=== PATIENT | female | born 1985 | race Caucasian/White ===

== ENCOUNTER 2017-04-02 10:50 | Observation (INO) | payer MEDICAID, OTHER ==
[~2017-04-02] VITALS: Ht 165.1 cm; Wt 89.8 kg
[2017-04-02 11:54] VITALS: BP 100/56
[2017-04-02] MEDS ORDERED: PREN-380 PO (12:00)
[2017-04-02] MEDS ORDERED: FERR-252 PO (12:00)
== END 2017-04-02 13:26 | disposition home or self-care (01) ==
LOC: MLD 10:50
PROVIDERS: ADMIT Obstetrics & Gynecology; ATTEND Obstetrics & Gynecology
DX: O36.8120 Decreased fetal movements, second trimester, not applicable or unspecified (principal); Z3A.26 26 weeks gestation of pregnancy
CPT/HCPCS: 76819; 81000; G0378; Q0092

== ENCOUNTER 2017-05-08 10:05 | Observation (INO) | payer OTHER ==
[~2017-05-08] VITALS: Ht 165.1 cm; Wt 90.7 kg
[2017-05-08] MEDS: LACTATED RINGERS 1,000 ML IV SCH ×2 (00:58→16:27)
[~2017-05-08 10:05] MED LIST: FERR-252 PO; PREN-380 PO
[2017-05-08] MEDS ORDERED: DEXT 5% / LACT RING 1,000 ML IV SCH (10:50)
[2017-05-08] MEDS ORDERED: ONDANSETRON 4 MG/2 ML VIAL IVP PRN (10:55)
[2017-05-08] MEDS: guaiFENesin 20 MG/ML UDC PO PRN ×2 (11:46→17:52)
[2017-05-08 12:18] VITALS: BP 92/53
[2017-05-08] MEDS ORDERED: ALBUTEROL HFA MDI 90 MCG/ACTUATION 8 GM INH PRN (13:05)
[2017-05-08 13:22] LABS: BASOPHILS % (AUTO) 0.1 % (0.0-2.0); EOSINOPHILS % (AUTO) 0.2 % (0.0-4.0); HEMATOCRIT 34.4 % (36-48); HEMOGLOBIN 11.9 g/dL (12.0-16.0); LYMPHOCYTES # (AUTO) 0.4 K/uL (2.5-16.5); MEAN CORPUSCULAR HEMOGLOBIN 31 pg (27-31); MEAN CORPUSCULAR HGB CONC 35 g/dL (33-37); MEAN CORPUSCULAR VOLUME 90 fL (80-94); MONOCYTES # (AUTO) 0.8 K/uL (0.8-1.0); MONOCYTES % (AUTO) 4.5 % (1.7-9.3); NEUTROPHILS # (AUTO) 17.3 K/uL (1.8-7.7); NEUTROPHILS % (AUTO) 93.2 % (42.2-75.2); PLATELET COUNT (AUTO) 176 K/uL (140-450); RED BLOOD CELL COUNT(AUTO) 3.84 MIL/uL (4.20-5.40); RED CELL DISTRIBUTION WIDTH 14.1 % (11.6-13.7); WHITE BLOOD COUNT (AUTO) 18.5 K/uL (4.8-10.8)
[2017-05-08] MEDS ORDERED: ACETAMINOPHEN 325 MG TAB ONE ×2 (13:33→19:59)
[2017-05-08] MEDS: ACETAMINOPHEN 325 MG TAB PO PRN ×2 (13:38→20:08)
[2017-05-08 13:41] LABS: ALBUMIN 2.6 g/dL (3.4-5.0); ANION GAP 14.7 (8-16); CARBON DIOXIDE 21.9 mmol/L (21-32); CREATININE 0.9 mg/dL (0.6-1.3); POTASSIUM 3.6 mmol/L (3.5-5.1); TOTAL BILIRUBIN 0.2 mg/dL (0.0-1.0)
[2017-05-08] MEDS: ALBUTEROL 0.083% 2.5 MG/3 ML NEBU INH PRN ×2 (13:54→20:40)
[2017-05-08] MEDS ORDERED: AZITHROMYCIN 500 MG in DEXTROSE 5% 250 ML IV SCH (14:00)
[2017-05-08] MEDS ORDERED: OSELTAMIVIR PHOSPHATE 75 MG CAP ONE (22:16)
[2017-05-09] MEDS ORDERED: ACETAMINOPHEN 325 MG TAB ONE (01:40)
[2017-05-09] MEDS: ACETAMINOPHEN 325 MG TAB PO PRN (01:50)
[2017-05-09] MEDS: ALBUTEROL 0.083% 2.5 MG/3 ML NEBU INH PRN (08:52)
[2017-05-09] MEDS ORDERED: OSELTAMIVIR PHOSPHATE 75 MG CAP PO SCH (09:00)
--- NOTE | 2017-05-09 09:00 | NUR ---
PATIENT HAS BEEN SCREENED AND CATEGORIZED LOW NUTRITION RISK. PT WILL BE SEEN WITHIN 7 DAYS OF ADMISSION. 05/14/[address]
== END 2017-05-09 09:51 | disposition home or self-care (01) ==
LOC: MLD 10:05
PROVIDERS: ADMIT Obstetrics & Gynecology; ATTEND Obstetrics & Gynecology
DX: O26.893 Other specified pregnancy related conditions, third trimester (principal); O36.8130 Decreased fetal movements, third trimester, not applicable or unspecified; R06.02 Shortness of breath; R05 Cough; Z3A.30 30 weeks gestation of pregnancy
CPT/HCPCS: 36415; 36600; 71045; 76805; 80053; 81000; 82803; 85025; 87804; 94640; 96361; 96365; 96375; G0378; J0456; J2405; J7120; J7613; Q0092; J7060